=== PATIENT | female | born 1975 | race Caucasian/White ===

== ENCOUNTER 2017-06-12 15:32 | Emergency (ER) | payer BC ==
--- NOTE | 2017-06-12 16:20 | ED.PDOC ---
History of Present Illness - General Chief Complaint: Skin/Abrasion/Tear Stated Complaint: abscess left buttocks Time Seen by Provider: 06/12/17 16:19 Source: patient Exam Limitations: no limitations - History of Present Illness Initial Comments: Cece Sanchez 41 y/o female stated that she felt something on her left buttocks 2 days ago insect bite but gradually got more painful and swollen.Denies fever / chills Timing/Duration: other - 2 days Location: extremities Improving Factors: nothing Worsening Factors: movement Associated Symptoms: other - pain Allergies/Adverse Reactions: Allergies Aspirin Allergy (Verified 06/12/17 16:35) Penicillin G Allergy (Verified 06/12/17 16:35) Home Medications: Ambulatory Orders Cetirizine HCl [ZyrTEC] 10 mg PO DAILY 06/12/17 Clindamycin HCl 300 mg PO BID #30 cap 06/12/17 Hydroxyzine HCl 10 mg PO DAILY 06/12/17 Tramadol HCl 100 mg PO TID PRN #20 tab 06/12/17 Review of Systems - Review of Systems Constitutional: States: no symptoms reported EENTM: States: no symptoms reported Respiratory: States: no symptoms reported Cardiology: States: no symptoms reported Gastrointestinal/Abdominal: States: no symptoms reported Genitourinary: States: no symptoms reported Musculoskeletal: States: no symptoms reported Skin: States: see HPI Past Medical History (General) - Patient Medical History Hx Diabetes: No Surgical History: no surgical history - Vaccination History Hx Tetanus, Diphtheria Vaccination: No Hx Influenza Vaccination: No Hx Pneumococcal Vaccination: No - Social History Hx Tobacco Use: No Hx Alcohol Use: Yes Hx Substance Use: No Hx Substance Use Treatment: No Hx Depression: No - Female History Patient : No Family Medical History - Family History Mother Family History: Unknown Living Status: Unknown Physical Exam - Physical Exam General Appearance: Alert, Comfortable, No apparent distress Eyes, Ears, Nose, Throat Exam: PERRL/EOMI, normal ENT inspection Neck: non-tender, supple Cardiovascular/Chest: normal peripheral pulses, regular rate, rhythm, no murmur Respiratory: chest non-tender, lungs clear Gastrointestinal/Abdominal: non tender, soft, no organomegaly Back Exam: normal inspection Extremity: normal range of motion, no pedal edema, no calf tenderness Neurologic: alert, normal mood/affect, oriented x 3 Skin Exam: warm/dry, normal color Skin Problem Location: other - left buttocks Skin Character: abscess - tender erythematous swelling Progress - Progress Progress: 06/12/17 17:08 Vital Signs 06/12/17 16:20 Temperature 98.4 F Pulse Rate [ 91 H pulse ox] Respiratory 20 Rate Blood Pressure 142/99 [Left Arm] O2 Sat by Pulse 94 L Oximetry Procedures - Incision and Drainage #1 Site: cutaneous abscess left buttocks Procedure and Prep: betadine prep, sterile drapes applied, sterile dressings applied, gauze wick placed - local infitration with 1% lidocaine, irrigated, wound culture collected, pus drained Departure - Departure Clinical Impression: Cutaneous abscess of buttock Time of Disposition: 17:11 Disposition: Discharge to Home or Self Care Condition: Good Instructions: DI for Skin Abscess, DI for Incision and Drainage of a Skin Abscess, Incision and Drainage of a Skin Abscess Referrals: Rene White MD [Primary Care Provider] - 1-2 Weeks Prescriptions: Clindamycin HCl 300 mg PO BID #30 cap Tramadol HCl 100 mg PO TID PRN #20 tab PRN Reason: Pain Home Medications: Ambulatory Orders Cetirizine HCl [ZyrTEC] 10 mg PO DAILY 06/12/17 Clindamycin HCl 300 mg PO BID #30 cap 06/12/17 Hydroxyzine HCl 10 mg PO DAILY 06/12/17 Tramadol HCl 100 mg PO TID PRN #20 tab 06/12/17
[2017-06-12] MEDS ORDERED: CLINDAMYCIN PHOSPHATE 150 MG/ML VIAL IM ONE (16:33)
[2017-06-12] MEDS ORDERED: CLINDAMYCIN HCL CAP 150 MG CAP PO ONE (16:33)
[2017-06-12 16:35] VITALS: TEMP 98.4
[2017-06-12] MEDS ORDERED: LIDOCAINE 1% 10 ML VIAL INJ ONE (16:38)
[2017-06-12] MEDS ORDERED: POVIDONE IODINE 10 % 15 ML UD TOP ONE (16:40)
[2017-06-12] MEDS ORDERED: NEOMYCIN-BACITRACIN-POLYMYXIN 0.9 GM UD TOP ONE (16:48)
[2017-06-12] MEDS ORDERED: HYDROcodone 10MG/APAP 325MG 1 EA TAB PO ONE (17:07)
[2017-06-12 17:40] VITALS: O2SAT 97
[2017-06-12 17:41] VITALS: BP 130/86
== END 2017-06-12 17:40 | disposition home or self-care (01) ==
LOC: ER 15:32
DX: L02.31 Cutaneous abscess of buttock (principal); Z88.0 Allergy status to penicillin; Z88.6 Allergy status to analgesic agent
CPT/HCPCS: 87070; J3490

== ENCOUNTER 2017-06-13 17:59 | Emergency (ER) | payer BC ==
[2017-06-13] MEDS ORDERED: IODOFORM 1/4 INCH 1 EA BTTL TOP ONE (18:06)
--- NOTE | 2017-06-13 18:19 | ED.PDOC ---
History of Present Illness - General Chief Complaint: Wound Recheck Time Seen by Provider: 06/13/17 18:16 Source: patient Exam Limitations: no limitations - History of Present Illness Allergies/Adverse Reactions: Allergies Aspirin Allergy (Verified 06/12/17 16:35) Penicillin G Allergy (Verified 06/12/17 16:35) Home Medications: Ambulatory Orders Cetirizine HCl [ZyrTEC] 10 mg PO DAILY 06/12/17 Clindamycin HCl 300 mg PO BID #30 cap 06/12/17 Hydroxyzine HCl 10 mg PO DAILY 06/12/17 Tramadol HCl 100 mg PO TID PRN #20 tab 06/12/17 Past Medical History (General) - Patient Medical History Hx Stroke: No Hx Congestive Heart Failure: No Hx Diabetes: No Hx MRSA: No Surgical History: no surgical history - Vaccination History Hx Tetanus, Diphtheria Vaccination: No Hx Influenza Vaccination: No Hx Pneumococcal Vaccination: No - Social History Hx Tobacco Use: No Hx Alcohol Use: Yes Hx Substance Use: No Hx Substance Use Treatment: No Hx Depression: No - Female History Patient is a Female of Child Bearing Age (10 -59 yrs old): No Patient : No Family Medical History - Family History Mother Family History: Unknown Living Status: Unknown Physical Exam - Physical Exam General Appearance: Alert, Comfortable Skin Exam: normal color - abscessto left buttock cheek with mild surrounding erythema and induration already draining. Progress - Progress Progress: 06/13/17 18:17 The patient is presenting for repacking of her left buttock cheek abscess. The patient is feeling well and taking her clindamycin. The packing is removed and 8 inches of iodoform gauze were replaced. Wound was explored with a sterile cotton tip gauze without a significant amount of additional pus obtained. has been taught how to pack this for the next few weeks. ER warnings were given for any worsening. Departure - Departure Clinical Impression: Abscess Disposition: Discharge to Home or Self Care Condition: Fair Departure Forms: ED Discharge - Pt. Copy, Patient Portal Self Enrollment Diet: regular diet Activity: increase activity as tolerated Referrals: Rene White MD [Primary Care Provider] - 1-2 Weeks Home Medications: Ambulatory Orders Cetirizine HCl [ZyrTEC] 10 mg PO DAILY 06/12/17 Clindamycin HCl 300 mg PO BID #30 cap 06/12/17 Hydroxyzine HCl 10 mg PO DAILY 06/12/17 Tramadol HCl 100 mg PO TID PRN #20 tab 06/12/17 Additional Instructions: The patient is presenting for repacking of her left buttock cheek abscess. The patient is feeling well and taking her clindamycin. The packing is removed and 8 inches of iodoform gauze were replaced. Wound was explored with a sterile cotton tip gauze without a significant amount of additional pus obtained. has been taught how to pack this for the next few weeks. ER warnings were given for any worsening.
[2017-06-13 18:35] VITALS: BP 115/75; O2SAT 97
[2017-06-13 18:37] VITALS: TEMP 98.2
== END 2017-06-13 18:33 | disposition home or self-care (01) ==
LOC: ER 17:59
DX: Z48.00 Encounter for change or removal of nonsurgical wound dressing (principal)

== ENCOUNTER 2019-12-14 08:53 | Emergency (ER) | payer BC ==
[2019-12-14] MEDS ORDERED: OSELTAMIVIR 75 MG CAP PO ONE (09:50)
--- NOTE | 2019-12-14 10:00 | ED.PDOC ---
History of Present Illness - General Chief Complaint: General Stated Complaint: body aches, sweating, coughing Time Seen by Provider: 12/14/19 09:04 Source: patient Exam Limitations: no limitations - History of Present Illness Initial Comments: The patient is a 44-year-old female presented emergency room secondary to cough and fever for the last 24 to 48 hours. Minimal runny nose or sore throat. No shortness of breath. She does have generalized body aches and a headache. She reports having chills last night. Timing/Duration: 24 hours Severity: moderate Improving Factors: nothing Worsening Factors: nothing Associated Symptoms: cough, diaphoresis, fever/chills Allergies/Adverse Reactions: Allergies Aspirin Allergy (Verified 12/14/19 09:23) Penicillin G Allergy (Verified 12/14/19 09:23) Penicillins Allergy (Verified 12/14/19 09:23) Home Medications: Ambulatory Orders Cetirizine HCl [ZyrTEC] 10 mg PO DAILY 06/12/17 Hydroxyzine HCl [Hydroxyzine Hydrochloride] 10 mg PO DAILY 06/12/17 Oseltamivir Capsule [Tamiflu] 75 mg PO BID 5 Days #10 capsule 12/14/19 Review of Systems - Review of Systems Constitutional: States: chills, fever, malaise EENTM: States: no symptoms reported Respiratory: States: cough Cardiology: States: no symptoms reported Gastrointestinal/Abdominal: States: no symptoms reported Genitourinary: States: no symptoms reported Musculoskeletal: States: no symptoms reported Skin: States: no symptoms reported Neurological: States: headache Endocrine: States: excessive sweating All other Systems: No Change from Baseline Past Medical History (General) - Patient Medical History Hx Stroke: No Hx Congestive Heart Failure: No Hx Diabetes: No Hx Cancer: No Hx MRSA: No Surgical History: cholecystectomy - Vaccination History Hx Tetanus, Diphtheria Vaccination: Yes Hx Influenza Vaccination: No Hx Pneumococcal Vaccination: No - Social History Hx Tobacco Use: Yes Hx Alcohol Use: Yes Hx Substance Use: No Hx Substance Use Treatment: No Hx Depression: No - Activities of Daily Living Hospice Agency (if applicable):: None - Female History Patient is a Female of Child Bearing Age (10 -59 yrs old): Yes Patient : No Family Medical History - Family History Mother Family History: Unknown Living Status: Unknown Physical Exam - Physical Exam General Appearance: Alert, Comfortable, No apparent distress Eye Exam: bilateral normal Ears, Nose, Throat: hearing grossly normal, normal pharynx, nasal congestion Neck: full range of motion, supple Respiratory: lungs clear, normal breath sounds, no respiratory distress, no accessory muscle use Cardiovascular/Chest: normal peripheral pulses, no edema, tachycardia - Mild sinus tachycardia Gastrointestinal/Abdominal: non tender, soft Rectal Exam: deferred Back Exam: no CVA tenderness, no vertebral tenderness Extremity: normal range of motion, non-tender, normal inspection, no pedal edema, normal capillary refill Neurologic: foot cutter II-XII nml as tested, alert, normal mood/affect, oriented x 3 Skin Exam: normal color Comments: Vital Signs - 24 hr 12/14/19 12/14/19 09:04 09:16 Temperature 98.1 F Pulse Rate [ 112 H brachial] Respiratory 18 18 Rate Blood Pressure 130/87 [Left Arm] O2 Sat by Pulse 99 Oximetry The patient has tested positive for flu a Progress - Progress Progress: 12/14/19 10:00 The patient is a 44-year-old female presenting with influenza type A. She was given her first dose of Tamiflu here in case there is issues with pharmacy access to the weather today. Motrin needs to be used every 8 hours for the next couple of days with food to help reduce chills and body aches. She needs to keep her self well-hydrated. Treat symptomatically otherwise. ER warnings are given for any worsening. Keep routine follow-up with primary care doctor. claudio peters 045 Departure - Departure Clinical Impression: Influenza A Disposition: Discharge to Home or Self Care Condition: Good Departure Forms: ED Discharge - Pt. Copy, Patient Portal Self Enrollment Diet: regular diet Activity: increase activity as tolerated Referrals: Rene White MD [Primary Care Provider] - 1-2 Weeks Prescriptions: Oseltamivir Capsule [Tamiflu] 75 mg PO BID 5 Days #10 capsule Home Medications: Ambulatory Orders Cetirizine HCl [ZyrTEC] 10 mg PO DAILY 06/12/17 Hydroxyzine HCl [Hydroxyzine Hydrochloride] 10 mg PO DAILY 06/12/17 Oseltamivir Capsule [Tamiflu] 75 mg PO BID 5 Days #10 capsule 12/14/19 Additional Instructions: The patient is a 44-year-old female presenting with influenza type A. She was given her first dose of Tamiflu here in case there is issues with pharmacy access to the weather today. Motrin needs to be used every 8 hours for the next couple of days with food to help reduce chills and body aches. She needs to keep her self well-hydrated. Treat symptomatically otherwise. ER warnings are given for any worsening. Keep routine follow-up with primary care doctor.
[2019-12-14 10:13] VITALS: BP 121/79; TEMP 99.8; O2SAT 97
== END 2019-12-14 10:13 | disposition home or self-care (01) ==
LOC: ER 08:53
DX: J10.1 Influenza due to other identified influenza virus with other respiratory manifestations (principal); Z87.891 Personal history of nicotine dependence; Z88.0 Allergy status to penicillin; Z88.6 Allergy status to analgesic agent

== ENCOUNTER → 2020-07-02 | Outpatient (CLI) | payer BC ==
--- NOTE | 2020-07-03 19:40 | MAM ---
EXAM DESCRIPTION: 3D Screening BILATERAL : Digital Mammography. CLINICAL HISTORY: 44 years Female screening . No complaints. No family history breast cancer. Menarche age 14. Childbirth age 24. Premenopausal. No HRT. Bilateral breast augmentation. Lifetime risk of developing breast cancer (Tyrer-Cuzick model)(%): 8.8. COMPARISON: Baseline study at this facility.. No prior reports available. TECHNIQUE: Bilateral CC and MLO projection full-field images, with [employer] Implant Displacement digital tomosynthesis mammographic technique. Bilateral 2-D digital full-field images, MLO and CC projections, non-displaced. Bilateral digital 2-D full-field MLO images. Implant displaced CAD available for 2-D images. FINDINGS: The breast parenchymal density pattern is: Heterogeneously dense breast tissue, which may obscure small masses. No skin thickening or nipple retraction. Focal asymmetry in the retroareolar tissues bilaterally. Bilateral retro-muscular saline implants. Minimal folds bilaterally. No suspicious microcalcifications bilaterally. IMPRESSION: BI-RADS CATEGORY: 0 - INCOMPLETE- Need additional imaging evaluation. RECOMMENDATIONS: FOLLOW-UP: Recall for additional imaging: Bilateral directed ultrasound to the regions of interest.. Written communication concerning the IMPRESSION and Follow-up, will be mailed to the patient and referring health care provider. Electronically signed by: Karthik Maria MD 07/03/2020 7:39 PM CDT
== END | disposition home or self-care (01) ==
LOC: MAMMO 15:23
DX: Z12.31 Encounter for screening mammogram for malignant neoplasm of breast (principal)

== ENCOUNTER → 2020-07-22 | Outpatient (CLI) | payer BC ==
--- NOTE | 2020-07-23 09:50 | US ---
EXAM DESCRIPTION: Breast,Bilateral: Ultrasound. CLINICAL HISTORY: 44 yearsFemaleABNORMAL MAMMOGRAM. Patient has bilateral saline implants. COMPARISON: Bilateral screening digital breast tomosynthesis July 02. TECHNIQUE: Transcutaneous scanning of the bilateral breast utilizing winslow-scale and Doppler modes. Scanning performed by the supervisor propellant charge loading ; observation by Dr. Maria. FINDINGS: Mostly fibroglandular tissues bilaterally with minimal anterior subcutaneous fat. No dominant solid mass or distinct cyst. No fluid collection or large calcifications. Overlying skin is unremarkable. Typical "double line" of the implant capsule is intact where seen. IMPRESSION: Benign exam. BIRAD CATEGORY: 2 BENIGN FINDINGS. RECOMMENDATIONS: FOLLOW UP: Routine digital bilateral mammographic screening, one year interval from June 2020. Written communication explaining the IMPRESSION and follow-up, will be mailed to the patient and referring health care provider. The FINDINGS and the FOLLOW-UP plan were reviewed in person with the patient after the examination. According to the [employer], yearly mammograms are recommended starting at age 40 and continuing as long as a woman is in good health. Any breast change noted on a breast self-exam should be reported promptly to the patient's healthcare provider. Breast MRI is recommended for women with an approximately 20-25% or greater lifetime risk of breast cancer, including women with a strong family history of breast or ovarian cancer and women who have been treated for Hodgkin's disease. A negative mammographic report should not delay tissue diagnosis in patients with significant clinical history or physical findings. Extremely dense breast tissue limits the sensitivity of digital mammography. Electronically signed by: Karthik Maria MD 07/23/2020 9:49 AM CDT
== END ==
LOC: MAMMO 09:20
PROVIDERS: ATTEND Plastic Surgery
DX: R92.8 Other abnormal and inconclusive findings on diagnostic imaging of breast (principal); Z98.82 Breast implant status